=== PATIENT | male | born 1985 | race Caucasian/White ===

== ENCOUNTER 2018-05-25 15:11 | Emergency (ER) | payer MEDICAID, SELFPAY ==
[2018-05-25 15:15] VITALS: BP 135/82; PULSE 67; RESP 15; TEMP 36.7; O2SAT 97
--- NOTE | 2018-05-25 15:31 | W.ED.GENAD ---
Discharge Plan Disposition Patient Disposition: HOME Condition: Stable Discharge Details Chief Complaint: RespSymp Clinical Impression: URI (upper respiratory infection), Cough Primary Care Provider: Edenilson Serna ED Provider: Joseline Agustin Home Meds and New Rx's Prescriptions: New benzonatate [Tessalon Perles] 100 mg capsule 100 mg PO TID PRN (Reason: cough) Qty: 10 RF: 0 Continue sertraline 100 mg tablet 100 mg PO DAILY RF: 0 Discharge Instructions Instructions: Upper Respiratory Infection (ED), Acute Cough (ED) Additional Instructions: Drink plenty of fluids and get plenty of rest. Take Tylenol, Motrin, Mucinex [id number] as needed and directed. Follow-up with your primary care doctor in 1 week for reevaluation as needed. Return to the emergency department with any worsening or new concerning symptoms. Stand Alone Forms: Work Release Discharge Data Discharge Physician: Joseline Agustin Medical Decision Making 33-year-old male who presents with cough with green sputum and chest congestion with wheezing for the past few days. Denies sore throat, neck pain, headache. Patient has been eating and drinking well. Vital signs within normal limits. Normal ENT exam. Lungs clear to auscultation. No meningeal signs. Patient is declining steroids and antibiotics. I explained to patient that with a normal lung exam and no wheezing with normal oxygen saturation, I do not see any indication for steroids or antibiotics at this time, but if symptoms do not improve or worsen over the next 2 days he may need additional medication. Patient is declining prescriptions for steroids and antibiotics for home. He states he is mainly here for a work note and recommendation for his cough. We will send home with a prescription for Tessalon Perles. He is also instructed on the importance of rest, fluids, Motrin, Tylenol and Mucinex to help with cough and chest congestion. He was instructed to follow-up with his primary care doctor as needed and return to the ER if worse. HPI General Mode of arrival: ambulatory. Date/Time Provider Initiated Documentation: 05/25/18 15:12. Limitations to Documentation: no limitations. Information obtained by: patient. HPI Narrative: Patient is a 33-year-old male who presents with cough with green sputum and congestion for the past 2 days. Patient states he did have rhinorrhea, fever and body aches but this is now resolved. Patient states he thinks he may be wheezing. He denies sore throat, shortness of breath, or neck pain. He states he has been eating and drinking well. States he has taken [id number] guaifenesin for his symptoms without relief. Past medical history: GERD, obstructive sleep apnea Surgical history: None Social history: Occasional alcohol, denies tobacco or drugs Medications: Sertraline Allergies: Penicillin (rash) PCP: Dr. Serna Related Data Home Medications Medication Instructions Recorded Confirmed sertraline 100 mg tablet 100 mg PO DAILY 05/15/18 05/25/18 benzonatate [Tessalon Perles] 100 mg PO TID PRN #10 cap 05/25/18 Previous Rx's Medication Instructions Recorded benzonatate [Tessalon Perles] 100 mg PO TID PRN #10 cap 05/25/18 Allergies Allergy/AdvReac Type Severity Reaction Status Date / Time amoxicillin Allergy Unknown ITCHING Unverified 05/25/18 15:19 Penicillins Allergy Unknown Unverified 05/25/18 15:19 ANIMAL DANDER Allergy Unknown Uncoded 05/25/18 15:19 General Stated Complaint: RespSymp PATRICK: 4 Review of Systems Constitutional Denies chills, Denies excessive sweating, Denies fatigue, Denies fever(s), Denies weakness and Denies weight loss Eyes Patient Reports system reviewed and no additional complaints, except as docu and Denies blurry vision ENT Denies vertigo, Denies dizziness, Reports otalgia, Denies nasal congestion, Denies nasal discharge, Denies neck pain, Denies sinus pain, Denies sore throat and Denies throat swelling Cardiovascular Denies chest pain, Denies syncope, Denies rapid heart rate and Denies dyspnea Respiratory Reports chest congestion, Reports cough, Denies dyspnea and Reports wheezing Gastrointestinal Denies abdominal pain, Denies diarrhea and Denies vomiting Genitourinary Denies hematuria, Denies dysuria and Denies flank pain Musculoskeletal Denies back pain, Denies joint swelling and Denies neck pain Integumentary/Breasts Denies lesions and Denies rash Neurologic Denies behavioral changes, Denies confusion, Denies vertigo, Denies dizziness, Denies syncope and Denies weakness Psychiatric Denies behavioral changes, Denies confusion and Denies depression Endocrine Denies excessive sweating and Denies fatigue Hematologic/Lymphatic Denies easy bruising and Denies lymphadenopathy Allergic/Immunologic Denies throat swelling and Reports wheezing PFSH Social History Smoking/Tobacco Use Status: Never Exam Const General: cooperative and healthy appearing Orientation: alert and awake [facility] Head: normal to inspection Ears: hearing grossly normal bilaterally, external ears normal and TM's normal bilaterally General nose exam: external nose normal Face and sinus: normal facial exam and sinuses nontender Mouth: oral mucosae normal Teeth and gingiva: dentition normal Throat: posterior oropharynx normal, uvula midline, normal tonsils, no peritonsillar masses and other (No exudates) Eyes General: appearance normal, both eyes and all related structures Eyelids: eyelids normal EOM: EOM intact bilaterally Neck Neck: normal visual inspection Lymphatic: no lymphadenopathy noted Chest Chest: normal inspection of the chest Resp Effort & Inspection: normal respiratory effort and able to speak in complete sentences Auscultation: clear to auscultation bilaterally Cardio Rate: regular rate Rhythm: regular rhythm GI Inspection: normal to inspection Skin General skin exam: no rashes or lesions noted Neuro General: alert and awake Cognition: normal cognition Speech: speech normal Gait: normal gait Motor: muscle tone normal throughout Sensory Exam: no sensory deficits noted Extrem General: normal to inspection and full ROM Psych Appearance: grossly normal Mental Status: mental status grossly normal Speech and Movement: speech and movement normal Affect: normal affect Thought Process: normal Course Vital Signs Temperature 98.1 F 05/25/18 15:15 Pulse 67 05/25/18 15:15 Respiratory Rate 15 05/25/18 15:15 Blood Pressure 135/82 05/25/18 15:15 Pulse Oximetry 97 05/25/18 15:15 Temperature 98.1 F 05/25/18 15:15 Temperature Source Temporal Artery Scan 05/25/18 15:15 Pulse 67 05/25/18 15:15 Respiratory Rate 15 05/25/18 15:15 Respiratory Effort Non-Labored 05/25/18 15:20 Respiratory Depth Normal 05/25/18 15:20 Blood Pressure 135/82 05/25/18 15:15 Blood Pressure Position Sitting 05/25/18 15:15 Pulse Oximetry 97 05/25/18 15:15 Oxygen Delivery Method Room Air 05/25/18 15:15 Oxygen Flow Rate 0 05/25/18 15:15 Pain Level 1 05/25/18 15:15
--- NOTE | 2018-05-25 15:36 | ED.GENADUL_ITS ---
Discharge Plan Disposition Patient Disposition: HOME Condition: Stable Discharge Details Chief Complaint: RespSymp Clinical Impression: URI (upper respiratory infection), Cough Primary Care Provider: Edenilson Serna ED Provider: Joseline Agustin Home Meds and New Rx's Prescriptions: New benzonatate [Tessalon Perles] 100 mg capsule 100 mg PO TID PRN (Reason: cough) Qty: 10 RF: 0 Continue sertraline 100 mg tablet 100 mg PO DAILY RF: 0 Discharge Instructions Instructions: Upper Respiratory Infection (ED), Acute Cough (ED) Additional Instructions: Drink plenty of fluids and get plenty of rest. Take Tylenol, Motrin, Mucinex [id number] as needed and directed. Follow-up with your primary care doctor in 1 week for reevaluation as needed. Return to the emergency department with any worsening or new concerning symptoms. Stand Alone Forms: Work Release Discharge Data Discharge Physician: Joseline Agustin Medical Decision Making 33-year-old male who presents with cough with green sputum and chest congestion with wheezing for the past few days. Denies sore throat, neck pain, headache. Patient has been eating and drinking well. Vital signs within normal limits. Normal ENT exam. Lungs clear to auscultation. No meningeal signs. Patient is declining steroids and antibiotics. I explained to patient that with a normal lung exam and no wheezing with normal oxygen saturation, I do not see any indication for steroids or antibiotics at this time, but if symptoms do not improve or worsen over the next 2 days he may need additional medication. Patient is declining prescriptions for steroids and antibiotics for home. He states he is mainly here for a work note and recommendation for his cough. We will send home with a prescription for Tessalon Perles. He is also instructed on the importance of rest, fluids, Motrin, Tylenol and Mucinex to help with cough and chest congestion. He was instructed to follow-up with his primary care doctor as needed and return to the ER if worse. HPI General Mode of arrival: ambulatory . Date/Time Provider Initiated Documentation: 05/25/18 15:12 . Limitations to Documentation: no limitations . Information obtained by: patient . HPI Narrative: Patient is a 33-year-old male who presents with cough with green sputum and congestion for the past 2 days. Patient states he did have rhinorrhea, fever and body aches but this is now resolved. Patient states he thinks he may be wheezing. He denies sore throat, shortness of breath, or neck pain. He states he has been eating and drinking well. States he has taken over -the-counter guaifenesin for his symptoms without relief. Past medical history: GERD, obstructive sleep apnea Surgical history: None Social history: Occasional alcohol, denies tobacco or drugs Medications: Sertraline Allergies: Penicillin (rash) PCP: Dr. Serna Related Data Home Medications Medication Instructions Recorded Confirmed sertraline 100 mg tablet 100 mg PO DAILY 05/15/18 05/25/18 benzonatate [Tessalon Perles] 100 mg PO TID PRN #10 cap 05/25/18 Previous Rx's Medication Instructions Recorded benzonatate [Tessalon Perles] 100 mg PO TID PRN #10 cap 05/25/18 Allergies Allergy/AdvReac Type Severity Reaction Status Date / Time amoxicillin Allergy Unknown ITCHING Unverified 05/25/18 15:19 Penicillins Allergy Unknown Unverified 05/25/18 15:19 ANIMAL DANDER Allergy Unknown Uncoded 05/25/18 15:19 General Stated Complaint: RespSymp PATRICK: 4 Review of Systems Constitutional Denies chills, Denies excessive sweating, Denies fatigue, Denies fever(s), Denies weakness and Denies weight loss Eyes Patient Reports system reviewed and no additional complaints, except as docu and Denies blurry vision ENT Denies vertigo, Denies dizziness, Reports otalgia, Denies nasal congestion, Denies nasal discharge, Denies neck pain, Denies sinus pain, Denies sore throat and Denies throat swelling Cardiovascular Denies chest pain, Denies syncope, Denies rapid heart rate and Denies dyspnea Respiratory Reports chest congestion, Reports cough, Denies dyspnea and Reports wheezing Gastrointestinal Denies abdominal pain, Denies diarrhea and Denies vomiting Genitourinary Denies hematuria, Denies dysuria and Denies flank pain Musculoskeletal Denies back pain, Denies joint swelling and Denies neck pain Integumentary/Breasts Denies lesions and Denies rash Neurologic Denies behavioral changes, Denies confusion, Denies vertigo, Denies dizziness, Denies syncope and Denies weakness Psychiatric Denies behavioral changes, Denies confusion and Denies depression Endocrine Denies excessive sweating and Denies fatigue Hematologic/Lymphatic Denies easy bruising and Denies lymphadenopathy Allergic/Immunologic Denies throat swelling and Reports wheezing PFSH Social History Smoking/Tobacco Use Status: Never Exam Const General: cooperative and healthy appearing Orientation: alert and awake [facility] Head: normal to inspection Ears: hearing grossly normal bilaterally, external ears normal and TM's normal bilaterally General nose exam: external nose normal Face and sinus: normal facial exam and sinuses nontender Mouth: oral mucosae normal Teeth and gingiva: dentition normal Throat: posterior oropharynx normal, uvula midline, normal tonsils, no peritonsillar masses and other (No exudates) Eyes General: appearance normal, both eyes and all related structures Eyelids: eyelids normal EOM: EOM intact bilaterally Neck Neck: normal visual inspection Lymphatic: no lymphadenopathy noted Chest Chest: normal inspection of the chest Resp Effort & Inspection: normal respiratory effort and able to speak in complete sentences Auscultation: clear to auscultation bilaterally Cardio Rate: regular rate Rhythm: regular rhythm GI Inspection: normal to inspection Skin General skin exam: no rashes or lesions noted Neuro General: alert and awake Cognition: normal cognition Speech: speech normal Gait: normal gait Motor: muscle tone normal throughout Sensory Exam: no sensory deficits noted Extrem General: normal to inspection and full ROM Psych Appearance: grossly normal Mental Status: mental status grossly normal Speech and Movement: speech and movement normal Affect: normal affect Thought Process: normal Course Vital Signs Temperature 98.1 F 05/25/18 15:15 Pulse 67 05/25/18 15:15 Respiratory Rate 15 05/25/18 15:15 Blood Pressure 135/82 05/25/18 15:15 Pulse Oximetry 97 05/25/18 15:15 Temperature 98.1 F 05/25/18 15:15 Temperature Source Temporal Artery Scan 05/25/18 15:15 Pulse 67 05/25/18 15:15 Respiratory Rate 15 05/25/18 15:15 Respiratory Effort Non-Labored 05/25/18 15:20 Respiratory Depth Normal 05/25/18 15:20 Blood Pressure 135/82 05/25/18 15:15 Blood Pressure Position Sitting 05/25/18 15:15 Pulse Oximetry 97 05/25/18 15:15 Oxygen Delivery Method Room Air 05/25/18 15:15 Oxygen Flow Rate 0 05/25/18 15:15 Pain Level 1 05/25/18 15:15
== END 2018-05-25 15:49 | disposition home or self-care (01) ==
LOC: ER 15:50
PROVIDERS: Emergency Provider Physician Assistant; PCP Emergency Medicine
DX: J06.9 Acute upper respiratory infection, unspecified (principal); R05 Cough
CPT/HCPCS: 99283

== ENCOUNTER 2019-11-07 08:29 | Outpatient (CLI) | payer BC, SELFPAY ==
[2019-11-07 11:13] LABS: HCT 43.7 % (40.0-50.0); HGB 14.5 g/dL (13.5-17.5); Mean Corp. HGB Concentration 33.2 g/dL (32.0-36.0); Mean Corpuscular Hemoglobin 29.9 pg (27.0-33.0); Mean Corpuscular Volume 90.1 fL (80-95); Mean Platelet Volume 11.2 fL (8.0-11.0); Platelet Count 170 x1000/uL (130-400); RBC 4.85 m/cumm (4.50-6.00); White Blood Cell Count 4.86 k/cumm (4.4-10.8)
[2019-11-07 11:29] LABS: Calculated LDL 85 mg/dL (<100); Cholesterol 137 mg/dL (<200); HDL Cholesterol 43 mg/dL (40-60); TSH 0.55 uIU/mL (0.36-3.74); Triglyceride 46 mg/dL (<150)
== END 2019-11-07 08:49 ==
PROVIDERS: PCP Emergency Medicine; Visit Provider Nurse Practitioner
DX: R53.83 Other fatigue (principal); Z13.6 Encounter for screening for cardiovascular disorders
CPT/HCPCS: 36415; 80061; 85027; 84443

== ENCOUNTER 2021-08-19 13:58 | Outpatient (CLI) | payer BC, SELFPAY ==
--- NOTE | 2021-08-19 | DI.RAD_ITS ---
Exam(s) XR CHEST 2V PA LATERAL EXAM: XR CHEST 2V PA LATERAL CLINICAL HISTORY: COUGH, R05 TECHNIQUE: 2D digital imaging was performed of the chest. Two images were obtained. PA and lateral views were obtained. COMPARISON: CR ABD FLAT UPRIGHT PA CHEST from 08/29/2009 CR ABD FLAT UPRIGHT PA CHEST from 08/29/2009 FINDINGS: MEDIASTINUM: Normal. HEART: Normal. PULMONARY VASCULATURE: Normal. LUNGS: There are findings suspicious for retrocardiac left basilar infiltrate. PLEURAL SPACE: No pleural effusion or pneumothorax. BONE:Within normal limits for the patient's age. OTHER FINDINGS:Normal. IMPRESSION: Findings of a left basilar infiltrate which may represent pneumonia. DATA REPOSITORY: RADIATION DOSE DELIVERED:
== END 2021-08-19 14:18 ==
PROVIDERS: PCP Emergency Medicine; Visit Provider Physician Assistant Medical
DX: R05.8 Other specified cough (principal); R91.8 Other nonspecific abnormal finding of lung field
CPT/HCPCS: 71046

== ENCOUNTER 2023-10-09 11:17 | Outpatient (REF) | payer BC, SELFPAY ==
[2023-10-09 12:55] LABS: HCT 47.3 % (40.0-50.0); HGB 16.6 g/dL (13.5-17.5); MCHC 35.1 % (32.0-36.0); MCV 88 fL (80-95); MPV 10.6 fL (8.0-11.0); Platelet Count 194 10^3/uL (130-400); RBC 5.36 10^6/uL (4.36-5.78); RDW 12.3 % (11.8-14.1); RDW-SD 39.8 fL; WBC 4.64 10^3/uL (4.4-10.8)
[2023-10-09 13:13] LABS: ALT 29 U/L (16-63); AST 12 U/L (15-37); Albumin 4.2 g/dL (3.4-5.0); Alkaline Phosphatase 102 U/L (46-116); Anion Gap 10.8 mmol/L (3-11); BUN 18 mg/dL (7-18); Bilirubin, Total 0.5 mg/dL (0.2-1.0); CO2 26.2 mmol/L (21.0-32.0); CREATININE 0.9 mg/dL (0.70-1.30); Calcium 9.3 mg/dL (8.5-10.1); Chloride 104 mmol/L (98-107); Estimated GFR 113.51 (mL/min/1.73m2); Glucose 109 mg/dL (74-106); Potassium 4.5 mmol/L (3.5-5.1); Sodium 141 mmol/L (136-145); TSH (W/Ref FT4) 0.44 uIU/mL (0.36-3.74)
[2023-10-09 16:37] LABS: Lab Add On Test DONE
[2023-10-09 17:00] LABS: Hemoglobin A1C 5.4 % (<5.7)
[2023-10-10 09:20] LABS: HIV-1/2 Ag & Ab Screen Negative (Negative)
[2023-10-16 10:07] LABS: Hepatitis C Ab w Rflx HCV PCR Negative (Negative)
== END 2023-10-09 11:18 | disposition home or self-care (01) ==
LOC: LBN 11:17
PROVIDERS: PCP Nurse Practitioner Family; Visit Provider Nurse Practitioner Family
DX: R73.9 Hyperglycemia, unspecified (principal); F32.9 Major depressive disorder, single episode, unspecified; F41.9 Anxiety disorder, unspecified; Z11.4 Encounter for screening for human immunodeficiency virus [HIV]; Z11.59 Encounter for screening for other viral diseases; Z51.81 Encounter for therapeutic drug level monitoring
CPT/HCPCS: 80053; 85027; 86803; 87389; 83036; 84443